=== PATIENT | female | born 2000 | race Caucasian/White ===

== ENCOUNTER 2024-10-20 10:09 | Inpatient (IN) | payer OTHER, SELFPAY ==
--- NOTE | 2024-10-20 10:20 | DI.US.S_ITS ---
PROCEDURE: US OB BIOPHYSICAL PROFILE INDICATIONS: Pre eclamptic work up OUTSIDE/PRIOR DATING DATA: The calculations are made using the clinical THEE of 11/02/2024. TECHNIQUE: Real-time scanning was performed of the fetus, with image documentation. Biophysical profile was also obtained. Endovaginal scanning: Not performed COMPARISON: [facility] Ultrasound, US, US OB > 14 WEEKS FOLLOW UP, 07/14/2024, 10:14. FINDINGS: General: A single living intrauterine gestation is present. Presentation: Vertex, spine right. Placenta: Placental position is posterior, without previa. Amniotic fluid index: 16.1 cm, normal range is 5-24 cm. Single deepest vertical pocket is 6.8 cm. heart rate: 135 beats per minute. Maternal cervical canal: Not well seen Clinically estimated gestational age: 38 weeks 1 day Biophysical profile: Tone: 2 points. Movement: 2 points. Respiration: 0 points. Largest pocket of fluid: 2 points. IMPRESSION: 1. Muller living intrauterine at 38 weeks 1 day based on prior dating. 2. Normal placenta and amniotic fluid. 3. Biophysical profile is within normal limits. Score 6/8. respiratory motion is not visualized. We strive to produce accurate, complete, and clear reports of imaging services. To assist us in improving patient care, this report was composed using standard report templates and voice recognition software. Therefore, it may contain abnormal punctuation, insertions and/or omissions. Occasional wrong-word or sound-alike substitutions may occur. Though we review the report and make efforts to correct it, we do recommend that the report be read carefully in proper context to recognize any text inaccuracies. Dictated by: Fred Soria M.D. on 10/20/2024 at 13:27 Approved by: Fred Soria M.D. on 10/20/2024 at 13:33
[2024-10-20 10:55] LABS: Add Manual Diff / Slide Review NO; Basophils Absolute Auto 100 /uL (0-100); Basophils Percent Auto 0.7 % (0-2); Eosinophils Absolute Auto 200 /uL (0-450); Eosinophils Percent Auto 1.1 % (2-4); Hematocrit 35.2 % (36-46); Hemoglobin 11.7 g/dL (12.0-16.0); Lymphocytes Absolute Auto 2600 /uL (1100-4500); Lymphocytes Percent Auto 18.8 % (25-40); Mean Corpuscular HGB Conc 33.2 % (30-36); Mean Corpuscular Hemoglobin 29.2 PG (26-34); Mean Corpuscular Volume 87.8 fL (80-100); Monocytes Absolute Auto 1100 /uL (0-900); Monocytes Percent Auto 8.2 % (3-14); Neutrophils Absolute Auto 9800 /uL (1500-7000); Neutrophils Percent Auto 71.2 % (50-75); Platelet Count 281 X10^3/uL (150-400); Red Blood Cell Count 4.01 X10^6/uL (4.0-5.2); White Blood Cell Count 13.7 X10^3/uL (4.5-11.0)
[2024-10-20 11:10] LABS: Alanine Aminotransferase 20 IU/L (<35); Albumin 3.3 g/dL (3.5-5.0); Albumin Globulin Ratio 1.1 (1.0-2.8); Alkaline Phosphatase 168 U/L (38-126); Aspartate Aminotransferase 27 IU/L (14-36); BUN Creatinine Ratio 14.1 (6-22); Bilirubin Total 0.2 mg/dL (0.2-1.3); Blood Urea Nitrogen 9 mg/dL (7-17); Calcium 9.1 mg/dL (8.4-10.2); Carbon Dioxide 20 mmol/L (22-32); Chloride 109 mmol/L (98-107); Estimated Glomerular Filt Rate > 60 mL/min (>60); Globulin 2.9 g/dL (1.7-4.1); Glucose 75 mg/dL (70-100); HEMOLYSIS < 15 (0-50); Potassium 4.1 mmol/L (3.4-5.1); Sodium 133 mmol/L (137-145); Total Protein 6.2 g/dL (6.3-8.2); Uric Acid 6.8 mg/dL (2.5-6.2)
[2024-10-20 11:14] LABS: Creatinine Urine Random 32.86 mg/dL; Protein (Total) Urine Random 88 mg/dL (0-12); Protein Creatinine Ratio Urine 2.67 GRAM/24H
--- NOTE | 2024-10-20 12:01 | P.HPOB_ITS ---
OB HPI Date/Time Date of admission: 10/20/24 Date Patient Seen: 10/20/24 Time Patient Seen: 11:30 History of Present Condition Chief complaint: Observation : 2 Para: 0 Estimated Date of Delivery: 11/02/24 Estimated Gestational Age (weeks): 38.1 Narrative: Sheliavajaylene Betts is a 24 year old female @ 38wks 1 day by LMP concordant with 8wk US presents for evaluation of elevated BP in clinic. Feeling normal FM. No cramping, vaginal bleeding or leaking of fluid. No headache, vision changes, RUQ pain or swelling. Uncomplicated care with CNMs with steadily increasing BPs over the last 4 weeks. Desires low intervention and is anxious about possible IOL. Mother is present and supportive. Indications Indication for induction OB: gestational HTN/pre-eclampsia History of Present care: good care, initiated at week # (8wks), number of visits (9) and pounds weight gain (45) Dating criteria: LMP confirmed by 1st trimester US Ultrasounds: normal 1st trimester US and normal mid trimester US Obstetrical complications: preeclampsia (dx today) Medical complications: none Preadmission Labs Blood type: A (+) positive -: Antibody screen: negative, GBS status: negative, HBsAG: negative, HIV: negative, HSV 1: negative, HSV 2: negative and RPR/VDLR: negative -: Chlamydia screen: not detected and Gonorrhea screen: not detected -: Rubella: immune and Varicella: not immune HCT: 39.7 HCAB: negative PAP: Normal Cell-free DNA: declined 1 hr GTT: 98 Prior (ies) Hx # Term Pregnancies: 0 Hx # Pregnancies: 0 Number of Living Children: 0 Multiple births: 0 Spontaneous abortions: 1 Ectopic pregnancies: 0 Elective abortions: 0 Evaluation Evaluation Baseline heart rate: 130 Variability: Moderate (11-25) monitor accelerations: Present Monitor Decelerations: Absent Contraction Frequency (minutes): 0 Uterine Contraction Intensity: Mild Status: Category l Dilation (cm): 0 Effacement (%): 20 Dilation: Closed Effacement: 0-30% station: -3 Position of cervix: posterior Consistency: medium Evans score: 1 PFSH Medical History (Updated 10/20/24 @ 12:21 by Vicky Oakley CNM) ADHD Migraine Anxiety Surgical History (Updated 10/20/24 @ 12:22 by Vicky Oakley CNM) S/P tendon repair Family History (Updated 10/20/24 @ 12:23 by Vicky Oakley CNM) Mother Thyroid condition Social History (Updated 10/20/24 @ 12:23 by Vicyk Oakley CNM) marital status: unmarried,living together household members: significant other lives independently: Yes housing: apartment education level: high school occupational status: employed Smoking Status: Former smoker Smokeless tobacco user: other Meds Home Medications and Allergies Allergies Allergy/AdvReac Type Severity Reaction Status Date / Time Latex, Natural Rubber AdvReac Intermediate Verified 10/20/24 12:24 Review of Systems Review of Systems ROS: Yes All systems reviewed with the patient and are negative except as otherwise documented OB Exam Vital signs Blood Pressure: 140/91 Pulse Rate: 67 Temperature: 97.2 F Resp Effort & Inspection: normal respiratory effort and able to speak in complete sentences Auscultation: clear to auscultation bilaterally Cardio Rate: regular rate Rhythm: regular rhythm Heart Sounds: S1 normal and S2 normal Presentation: vertex Objective Imaging BPP: My impression: BPP 6/8 (no diaphragm movement) CRUZITO-16.1cm cephalic presentation Radiologist's impression: pending Labs 10/20/24 10:43 10/20/24 10:43 Labs: Laboratory Results - last 24 hr 10/20/24 10:43 WBC 13.7 H RBC 4.01 Hgb 11.7 L Hct 35.2 L MCV 87.8 MCH 29.2 MCHC 33.2 RDW 15.0 H Plt Count 281 Neut % (Auto) 71.2 Lymph % (Auto) 18.8 L [place] % (Auto) 8.2 Eos % (Auto) 1.1 L Baso % (Auto) 0.7 Neut # (Auto) 9800 H Lymph # (Auto) 2600 [place] # (Auto) 1100 H Eos # (Auto) 200 Baso # (Auto) 100 Sodium 133 L Potassium 4.1 Chloride 109 H Carbon Dioxide 20 L BUN 9 Creatinine 0.64 Estimated GFR > 60 BUN/Creatinine Ratio 14.1 Glucose 75 Uric Acid 6.8 H Calcium 9.1 Total Bilirubin 0.2 AST 27 ALT 20 Alkaline Phosphatase 168 H Total Protein 6.2 L Albumin 3.3 L Globulin 2.9 Albumin/Globulin Ratio 1.1 U Random Total Protein 88 H Urine Creatinine 32.86 Protein/Creatinin Ratio 2.67 Blood Type A Positive Antibody Screen Negative Of note, NOB platelets 409 and 27wk platelets 429. Assessment and Plan Assessment and Plan Assessment and Plan narrative: A: Early term [place] IOL for Preeclampsia Cervical ripening indicated No indication for antibiotics Cat I FHR P: Counseled on early diagnosis of preeclampsia and recommendation for IOL with through discussion of risks, benefits and alternatives and Anevay reluctantly agrees and signed informed consent. Admit, routine orders. Recommend starting with SL misoprostil until able to place Watson balloon catheter, ideally overnight. Encouraged balanced rest and movement during early phase of induction. Discussed case with [facility]/ who agreed with IOL and plan of care. Time-Based Coding :: [TOTAL MINUTES] spent with patient and on the chart (including review of chart, obtaining history, exam, reviewing outside data, placing orders, documenting exam and treatment plan, and counseling patient) on [DATE].
[2024-10-20 12:30] VITALS: BP 140/91; PULSE 67; TEMP 36.2
[2024-10-20] MEDS: miSOPROStoL 25 MCG TABLET 50 MCG SL ×3 (12:45→21:05)
--- NOTE | 2024-10-20 16:33 | PM.OBPNLAB ---
Date/Time Date Patient Seen: 10/20/24 Time Patient Seen: 16:10 Pain Control Pain control: tolerating well Comments: Feeling mild cramping with the SL misoprostol. Agrees to Domingo balloon placement. Not interested n NO2 for pain relief during placement. Partner and mother are supportive at her side. VS: BP 142/77, hr 66bpm, T 36.2C Temporal Pelvic Exam Dilation (cm): 1 Effacement (%): 20 station: -3 Amniotic membrane status: Intact Comments: Cervix visualized slightly open with sterile speculum and cleansed with betadine. 100% Silicone Domingo balloon catheter passed through cervix and inflated with 50mL NS. Tolerated well by Anevay. Contractions Monitor mode: External (poor continuity of FHR tracing) Pitocin rate (mU/min): 0 Contraction frequency (min): 3 (1-4 minutes apart) Contraction duration (min): 1 Contraction pattern: Irregular Contraction intensity: Mild Status status: Category ll (overall reassuring) Heart Rate Baseline: 135 Monitor Accelerations: Present Monitor Decelerations: Variable (rare) Assessment and Plan Assessment: induction ongoing Comments: Continue Q4 hour SL misoprostol as contraction pattern allows. Encouraged Anevayto apply traction to domingo tubing when she goes to the bathroom, otherwise no additional traction recommended. Encourage balanced rest and activity until balloon comes out. Continue continuous FHR monitoring and close monitoring of BPs. Reassess in 12 hours or sooner, if balloon comes out.
--- NOTE | 2024-10-21 02:08 | PM.OBPNLAB ---
Date/Time Date Patient Seen: 10/21/24 Time Patient Seen: 02:09 Pain Control Pain control: tolerating well Comments: Labored well in the tub with strong, regular contractions. Watson balloon came out at 2310 and contractions continued to be strong. SROM for copious clear fluid at 0015 followed by spontaneous urge to push. CNM called by RNs for this. Anevay is currently on bed in hands and knees position bearing down with each contraction. CNM continuously at bedside for 1 hour until able to perform exam. Anevay is spontaneously bearing down, though ineffectively during this time. VS: BP 132/71, HR 96bpm, T 36.3C Temporal Pelvic Exam Dilation (cm): 7 Effacement (%): 90 station: -1 Amniotic membrane status: Leaking (clear) Comments: molding noted CE @ 0315 Contractions Monitor mode: External (poor continuity of FHR tracing) Contraction frequency (min): 3 (1-4 minutes apart) Contraction pattern: Irregular Contraction intensity: Mild Status status: Category ll (overall reassuring) Heart Rate Baseline: 130 Monitor Accelerations: Present Monitor Decelerations: Absent Comments: Switched to intermittent auscultation Assessment and Plan Assessment: active labor Comments: Encouraged hydrotherapy and assisted to tub for relaxation in hopes to reduce her urge to bear down. Continuous labor support. Reassess in 2 hours or sooner, PRN.
[2024-10-21] MEDS: diphenhydrAMINE 50 MG/ML VIAL IV (05:18)
[2024-10-21] MEDS: LACTATED RINGERS 1,000 ML 100 ML IV (07:23)
[2024-10-21] MEDS: OXYTOCIN PREMIX 30 UNIT/500 ML PLAST..BAG 200 UNIT IV (07:23)
--- NOTE | 2024-10-21 07:44 | PM.OBPRVD ---
Events: Induced HTN, Pre-Eclampsia and Labor Induction Labor & Delivery Delivery date: 10/21/24 Delivery Time: 07:08 Intrapartal Events: Mild Preeclampsia Cervical ripening method: per misoprostal protocol Induction method: other (domingo balloon and misoprostol ) Delivery monitor: external FHT (intermittent) Route of delivery: Episiotomy description: None L&D Laceration Description: Perineal - 1st Degree Delivery repair: other (none) Quantitative Blood Loss: 50 Anesthesia Type: None Complications: Temo's pre-ecclampsia remained mild and labor progressed well without anesthesia or augmentation (Domingo balloon and miso x3 resulted in labor). She coped well with continuous support from her boyfriend, mother, RN, and SNM. She coped with most of her active stage of labor by bearing down with contractions. After getting out of the tub she labored at the bedside and on the toilet, feeling like she needed to have a BM. She returned to labor at the bedside when blood show was noted and Anevay reported that she felt like she is coming. At this point she was assumed complete, complete and was encouraged to continue pushing. Anevajaylene was assisted onto the bed in hands and knees on the cub where she pushed for about one hour. Baby's head emerged RENZO and restituted JENA along with the posterior shoulder and compound L hand; the rest of the body delivered with one additional maternal push. The vigorous baby girl was caught by FOB and SNM and was placed on the bed for drying. Pitocin was started for AMTS. When Anevay was ready the baby was passed through the maternal legs to Anevay and she was assisted to a reclined position. Apgars 8/9. After cessation of pulsing, the cord was double clamped by SNM and cut by FOB. Cord blood was collected. The placenta, membranes, and 3 vessel cord delivered with gentle downward traction and a single maternal push. It was inspected and found to be intact. The vagina and perineum were inspected and a homeostatic, well approximated 1st degree vaginal laceration was noted; no repair indicated. QBL 50mL. Anevay and baby were skin to skin and stable when I left the room. Baby 1: gender: Female Presentation: vertex Position: Left Occiput Anterior Placenta delivery description: Spontaneous Cord Vessel Description: 3 Vessels score (1 min): 8 score (5 min): 9 weight: 2.52 kg Plan for aftercare: Routine care
[2024-10-21] MEDS: LANOLIN OINT 7 GM 1 APPLIC TOP (09:15)
[2024-10-21] MEDS: ACETAMINOPHEN 325 MG TABLET 650 MG PO ×2 (09:16→18:29)
[2024-10-21] MEDS: WITCH HAZEL/GLYCERIN PADS 1 EACH TOP (09:16)
[2024-10-21] MEDS: KETOROLAC 30 MG/ML VIAL IV (09:17)
[2024-10-21] MEDS: IBUPROFEN 600 MG TABLET PO (18:31)
[2024-10-22] MEDS: ACETAMINOPHEN 325 MG TABLET 650 MG PO ×3 (01:02→13:36)
[2024-10-22] MEDS: IBUPROFEN 600 MG TABLET PO ×3 (01:03→13:37)
--- NOTE | 2024-10-22 08:10 | P.DS_ITS ---
Discharge Providers Provider Date of admission: 10/20/24 10:09 Discharge Date: 10/22/24 Consults: 10/22/24 07:22 Consult to Director Of Infection Prevention Routine Comment: Discharge provider: Vicky Oakley CNM Summary Hospital Course Date Patient Seen: 10/22/24 Time Patient Seen: 08:11 Diagnoses: O70.0, preeclampsia Hospital Course: IOL for preeclampsia with a domingo balloon and 3 total doses of misoprostol resulted in an 8 hour labor and uncomplicated vaginal . there was a short 1st degree vaginal laceration with no indication for repair. PPD1: Stable s/p NSVB, normotensive overnight. Tolerating a general diet. Pain is well controlled with PO medication. Vaginal bleeding is light, without clots. independently, though her daughter is small for gestational age and has had occasional low BG for which glucose gel was given and Anevay has been pumping up to 12mL of colostrum. Partner remains present and supportive. Feeling personally ready for discharge but eager to stay as long as her daughter needs. Peripartum Data Delivery Method: Natural Vaginal Laceration Description: Vaginal - 1st Degree Episiotomy description: None complications: none [place] 1: Gender: Female Disposition of : home Discharge Diagnosis (1) First degree perineal laceration during delivery: Status: Acute Problem Details: Routine course (2) Pre-eclampsia, delivered: Status: Acute Problem Details: normotensive period Status at Discharge Cognitive/behavioral status at discharge: oriented and calm Functional status at discharge: independent ambulation Overall status at discharge: patient is progressing back to baseline Time Spent with Patient Time attestation: Total time spent providing and/or coordinating discharge services: Objective Labs 10/20/24 10:43 10/20/24 10:43 Exam Vital Signs (past 8 hours): BP 132/86, HR 89bpm, RR 18, T 98.1F Temporal, SpO2 98% Other: FF @ U-1, lochia small, no clots. Perineum intact. Psych Appearance: grossly normal Mental Status: mental status grossly normal Mood: congruent mood Affect: normal affect Discharge Plan Discharge Plan Patient Disposition: Home Discharge orders & Medications Prescriptions: New ibuprofen 600 mg Tablet 600 mg PO Q6HR PRN (Reason: Pain, Mild (1-3)) 14 Days Qty: 60 0RF Follow up/Referrals: Vicky Oakley CNM [[facility] Operator] - (5day BP check, 2week and 6week follow-up appointments all scheduled and in her email.) Diet/Activity/Treatments Diet: Diet as Tolerated and Regular Activity: bed rest x 2 weeks, no heavy lifting for 4 weeks, pelvic rest x 6 weeks Skin/Wound/Dressing Care Report to your healthcare provider any signs of infection, such as:: chills, fever, increased pain, unusual drainage and unusual redness Visit Report/Discharge Packet Instructions: DI for Depression Stand Alone Forms: Patient Portal/API, Stroke Signs & Symptoms
== END 2024-10-22 19:27 | disposition home or self-care (01) | DRG 560 ==
PROVIDERS: Admitting Provider Advanced Practice Midwife; Referring Provider Advanced Practice Midwife; Visit Provider Advanced Practice Midwife
DX: O14.04 Mild to moderate pre-eclampsia, complicating childbirth (principal); Z3A.38 38 weeks gestation of pregnancy; Z37.0 Single live birth
CPT/HCPCS: 36415; 59050; 59200; 76819; 80053; 82570; 84156; 84550; 85025; 86850; 86900; 86901; G0379; J1200; J1885; J2590